=== PATIENT | male | born 1990 | race Caucasian/White ===

== ENCOUNTER 2024-05-18 04:41 | Emergency (ER) | payer OTHER, SELFPAY ==
[2024-05-18] VITALS (7 sets, daily range): BP systolic 116–138; BP diastolic 61–89; PULSE 61–92; RESP 15–24; TEMP 36.6–36.7; O2SAT 96–98; BMI 28.4
--- NOTE | ~2024-05-18 | US_ITS ---
EXAMINATION: US SCROTUM CLINICAL INFORMATION: Testicular pain swelling. COMPARISON: None available. TECHNIQUE: A sonogram of the scrotum was performed assessing navarro-scale appearance and color Doppler flow. Spectral Doppler analysis of the arterial and venous flow were performed in the testes bilaterally. The right testicle is 5.2 x 2.4 x 3.2 cm. Volume 21 mL Left testicle is 4.9 x 3.1 x 3 cm. Volume 23 mL. Importantly testicles are within normal limits. Echogenicity is normal bilaterally. There is arterial and venous flow detected in the testicles bilaterally. Note is made of a complex hydrocele on the left. Left epididymis is prominent with increased vascularity Note is made of probable appendix testes on the left. Probable cystic spermatocele in the body of the left testicle. Given the history this could represent a small hematoma US/US scrotum doppler IMPRESSION: Testicles are as described normal in appearance and demonstrating arterial and venous flow. There is a complex hydrocele associated with the left sac and the epididymis is prominent on the left with a small cystic area. This could be epididymitis. Given history of trauma this could be epididymal injury with surrounding aging hematoma. Underlying infection of course needs to be considered and cannot be excluded. Correlation recommended clinically
--- NOTE | ~2024-05-18 | US_ITS ---
EXAMINATION: US SCROTUM CLINICAL INFORMATION: Testicular pain swelling. COMPARISON: None available. TECHNIQUE: A sonogram of the scrotum was performed assessing navarro-scale appearance and color Doppler flow. Spectral Doppler analysis of the arterial and venous flow were performed in the testes bilaterally. The right testicle is 5.2 x 2.4 x 3.2 cm. Volume 21 mL Left testicle is 4.9 x 3.1 x 3 cm. Volume 23 mL. Importantly testicles are within normal limits. Echogenicity is normal bilaterally. There is arterial and venous flow detected in the testicles bilaterally. Note is made of a complex hydrocele on the left. Left epididymis is prominent with increased vascularity Note is made of probable appendix testes on the left. Probable cystic spermatocele in the body of the left testicle. Given the history this could represent a small hematoma US/US scrotum IMPRESSION: Testicles are as described normal in appearance and demonstrating arterial and venous flow. There is a complex hydrocele associated with the left sac and the epididymis is prominent on the left with a small cystic area. This could be epididymitis. Given history of trauma this could be epididymal injury with surrounding aging hematoma. Underlying infection of course needs to be considered and cannot be excluded. Correlation recommended clinically
--- NOTE | 2024-05-18 05:11 | ED_ITS ---
HPI - Male Genitourinary General Chief complaint: Urogenital-Male Stated complaint: uro gen male after inj Time Seen by Provider: 05/18/24 05:18 Source: patient and family Mode of arrival: ambulatory Limitations: no limitations History of Present Illness ED Provider: DR. Steen HPI Narrative: 33-year-old male presented for evaluation of left testicular pain. Pain started 3 days ago as acute left testicular pain while he was getting out of the car holding heavy bag, do not remember any direct trauma to his testicle. Patient stated that the pain started mild and progressively started to get severe was seen at an urgent care and scheduled to have ultrasound sometimes today, patient notice blood in his ejaculate initially, woke up this morning in severe pain and worsening of the scrotal swelling. Sexually active with 1 partner no penile discharge, no risk for STD. Related Data Allergies Allergy/AdvReac Type Severity Reaction Status Date / Time amoxicillin Allergy Hives Verified 05/18/24 04:55 Review of Systems 2 Review of Systems: All other systems are reviewed and are negative Constitutional: Reports as per HPI and Reports no additional constitutional complaints Eyes: Reports as per HPI and Reports no additional eye complaints Reports system reviewed and no additional complaints, except as documented Cardiovascular: Reports as per HPI and Reports no additional cardiovascular complaints Respiratory: Reports as per HPI and Reports no additional respiratory complaints Gastrointestinal: Reports as per HPI and Reports no additional gastrointestinal complaints Genitourinary: Reports no additional female genitourinary complaints Musculoskeletal: Reports no additional musculoskeletal complaints Skin/Breast: Reports system reviewed and no additional complaints, except as docu Psychiatric: Reports no additional psychiatric complaints Endocrine: Reports no additional endocrine complaints Hematologic/Lymphatic: Reports no additional hematologic/lymphatic complaints Allergic/Immunologic: Reports no additional allergic/immunologic complaints Reports system reviewed and no additional complaints, except as documented and Reports Abnormal speech present [facility] Social History Social History Smoked in Last 30 Days: No Use of substances other than those prescribed or required for medical reasons: Yes Substance Use Type: Marijuana Substance Use Frequency: Daily Advance Directives: No Advance Directives Information Provided: No Do you have a plan to hurt others: No Plan Physical Exam 2 Vital Signs: Vital Signs: Last Vital Signs Temp 98.1 F 05/18/24 04:52 Pulse 92 05/18/24 04:52 Resp 16 05/18/24 05:50 BP 138/89 05/18/24 04:52 Pulse Ox 98 05/18/24 04:52 O2 Del Method Room Air 05/18/24 04:52 BMI result Body Mass Index 28.4 Vital signs have been reviewed and appear to be correct. Blood pressure elevated. Heart rate normal. Respiratory rate normal. Temperature normal. Oxygen saturation normal. Appearance: Alert. Oriented X3. No acute distress. Head: Normal external exam. Normocephalic. Atraumatic. No Meraz signs noted. No raccoon eyes noted Eyes: PERRLA. EOMI. Conjunctiva and sclera normal. Eyelids normal. ENT: TM's Normal. Pharynx normal. Uvula midline. Moist mucous membranes. No trismus noted. No drooling noted. No muffled voice noted. Neck: Normal inspection. Neck supple. FROM. No adenopathy. Thyroid Normal. No meningeal signs. No neck mass noted. CVS: Normal heart rate and rhythm. Heart sound normal. No murmurs noted. Pulses normal throughout. Respiratory: No respiratory distress. Painless inspiration. Breath sounds normal. No wheezes/rales/rhonchi noted. Chest nontender. No accessory muscle usage noted or decreased air movement noted. Abdomen: Soft and nontender. Bowel sounds normal in all 4 quadrants. No distention noted. No organomegaly noted. No visible injury noted. exam: Diffuse scrotal swelling and tenderness left more than right, cremasteric reflex is intact bilaterally. Back: No CVA tenderness. Full range of motion noted. Skin: Skin warm and dry. Normal skin color. Normal skin turgor. No rashes/lesions/lacerations noted. Extremities: No lower extremity edema. Extremities exhibit normal range of motion. Extremities nontender. Neuro: Oriented X 3. Cranial nerve exam: II-XII are grossly intact No motor deficit. No sensory deficit. Reflexes normal. Course Reevaluation(s) Reevaluation #1: 33-year-old male came in with left testicular pain for 3 days with questionable minor trauma to the testicle, sexually active with 1 partner patient declined risk for STDs, urine is showing WBCs and small leuko esterase, testicular ultrasound, labs are pending. Dose of ceftriaxone in the ED. Signed out to Dr. Sutton to check ultrasound/labs. Time: 06:51 Medications Administered Discontinued Medications Generic Name Dose Route Start Last Admin Trade Name Boris PRN Reason Stop Dose Admin Hydromorphone HCl 1 mg 05/18/24 05:10 05/18/24 05:50 Hydromorphone Hcl 1 Mg/Ml Syringe IM 05/18/24 05:11 1 mg ONCE ONE Administration Protocol Ceftriaxone Sodium 1 gm/ 50 mls @ 100 mls/hr 05/18/24 06:38 05/18/24 07:18 Sodium Chloride IV 05/18/24 07:07 100 mls/hr ONCE ONE Administration Ketorolac Tromethamine 30 mg 05/18/24 05:10 05/18/24 05:46 Ketorolac Tromethamine 30 Mg/Ml Vial IM 05/18/24 05:11 30 mg ONCE ONE Administration Medical Decision Making Differential Diagnosis Differential Diagnoses: The differential diagnosis associated with the presentation includes (STD, epididymitis, testicular torsion, UTI, testicular trauma and hematoma.) Admission/Observation Consideration of admission/observation: Escalation of care including admission/observation considered Lab Data MDM Lab Attestation statement: I reviewed the patient's lab results. 05/18/24 06:59 05/18/24 06:59 Labs: Lab Results 05/18/24 05/18/24 Range/Units 05:52 06:59 WBC 22.0 H (4.8-10.8) X10*3/uL RBC 4.72 (4.60-5.80) X10*6/uL Hgb 14.9 (14.0-18.0) g/dl Hct 41.0 L (42.0-52.0) % MCV 86.9 (80.0-98.0) fL MCH 31.6 (27.0-33.0) pg MCHC 36.3 H (31.0-36.0) g/dl RDW 11.6 (11.0-16.0) % Plt Count 349 (160-400) X10*3/uL MPV 9.3 L (9.4-12.4) fL Sodium 140 (135-145) mmol/L Potassium 3.9 (3.3-5.1) mmol/L Chloride 106 (96-108) mmol/L Carbon Dioxide 25 (22-29) mmol/L Anion Gap 13 (12-20) BUN 10 (9-16) mg/dL Creatinine 0.88 (0.5-1.4) mg/dL Estim Creat Clear Calc 145.4 Estimated GFR > 60 Random Glucose 116 H (60-115) mg/dL Lactic Acid 1.3 (0.5-2.0) mmol/L Calcium 9.4 (8.4-10.2) mg/dL Urine Color Yellow Urine Appearance Clear Urine pH 6.5 (5.0-9.0) Ur Specific [place] 1.015 (1.005-1.025) Urine Protein Negative (Neg-Trace) mg/dL Urine Glucose (UA) Negative (Negative) mg/dL Urine Ketones Negative (Negative) mg/dL Urine Blood Negative (Negative) Urine Nitrite Negative (Negative) Ur Leukocyte Esterase Small (1+) H (Negative) Urine RBC 0-2 (0-2) /HPF Urine WBC 11-20 H (0-5) /HPF Ur Squamous Epith Cells 0-2 (0-2) /HPF Urine Bacteria None Seen (None Seen) Hyaline Casts 0-2 (0-2) /LPF Discharge Plan Discharge Clinical Impression: Epididymitis Patient Disposition: Still a Patient Referrals: Chase Martínez MD [Physician] - Print Language: Cymraes
[2024-05-18] MEDS: Ketorolac Tromethamine 30 MG/ML VIAL IM (05:46)
[2024-05-18] MEDS: HYDROmorphone HCl 1 MG/ML SYRINGE IM (05:50)
[2024-05-18 06:00] LABS: Appearance Urine Clear; Color Urine Yellow; Glucose Urine UA Negative (Negative); Leukocyte Esterase Urine Small (1+) (Negative); Nitrite Urine Negative (Negative); PH 6.5 (5.0-9.0); Specific Gravity - Urine 1.015 (1.005-1.025); UMIC TRIGGER UACC YES; Urine Blood Negative (Negative); Urine Ketones Negative (Negative); Urine Protein Negative (Neg-Trace)
[2024-05-18 06:03] LABS: Bacteria Urine None Seen (None Seen); Hyaline Casts Urine 0-2 /LPF (0-2); RBC Urine 0-2 /HPF (0-2); Squamous Epithelial Cell Urine 0-2 /HPF (0-2); UACC Culture Trigger YES
[2024-05-18 07:08] LABS: Basophils Absolute Auto 0.1 X10*3/uL (0.0-0.2); Basophils Percent Auto 0.4 % (0-2); Eosinophils Absolute Auto 0.5 X10*3/uL (0.0-0.4); Eosinophils Percent Auto 2.5 % (0-4); Hemoglobin 14.9 g/dl (14.0-18.0); Imm Gran Abs Auto 0.11 X10*3/uL (0.00-0.03); Imm Gran Pct Auto 0.5 % (0.0-0.4); Lymphocytes Absolute Auto 2.2 X10*3/uL (1.2-4.9); MANUAL DIFF FLAG SCAN; Mean Corpuscular HGB Conc 36.3 g/dl (31.0-36.0); Mean Corpuscular Hemoglobin 31.6 pg (27.0-33.0); Mean Corpuscular Volume 86.9 fL (80.0-98.0); Mean Platelet Volume 9.3 fL (9.4-12.4); Monocytes Absolute Auto 1.7 X10*3/uL (0.1-1.2); Monocytes Percent Auto 7.8 % (2-11); Neutrophils Absolute Auto 17.4 x10*3/uL (2.0-8.3); Neutrophils Percent Auto 78.8 % (45-73); Platelet Count 349 X10*3/uL (160-400); Red Blood Count 4.72 X10*6/uL (4.60-5.80); Red Cell Distribution Width 11.6 % (11.0-16.0); SCAN SMEAR FLAG 1
[2024-05-18 07:17] LABS: Lactic Acid 1.3 mmol/L (0.5-2.0)
[2024-05-18] MEDS: cefTRIAXone sodium 1 GM in 0.9 % Sodium Chloride 50 ML IV (07:18)
[2024-05-18 07:20] LABS: Anion Gap 13 (12-20); Blood Urea Nitrogen 10 mg/dL (9-16); Calcium 9.4 mg/dL (8.4-10.2); Carbon Dioxide 25 mmol/L (22-29); Chloride 106 mmol/L (96-108); Creatinine Clr Calc Pharmacy 145.4; Estimated Glomerular Filt Rate > 60; Glucose Random 116 mg/dL (60-115); Potassium 3.9 mmol/L (3.3-5.1); Sodium 140 mmol/L (135-145)
[2024-05-18 07:44] LABS: Erythrocyte Sedimentation Rate 13 MM/HR (0-15)
[2024-05-18 07:53] LABS: SLIDE REVIEW VERIFIED
[2024-05-18] MEDS: Acetaminophen 325 MG TABLET 975 MG PO (09:31)
[2024-05-18] MEDS: Doxycycline Monohydrate 100 MG CAPSULE PO (09:32)
[2024-05-18] MEDS: oxyCODONE HCl Immed Release 5 MG TABLET 10 MG PO (10:40)
[2024-05-18 11:40] LABS: CT PCR NOT DETECTED (Not Detect.); NG PCR NOT DETECTED (Not Detect.)
== END 2024-05-18 11:26 | disposition home or self-care (01) ==
PROVIDERS: Emergency Provider Emergency Medicine
DX: N45.1 Epididymitis (principal); N50.812 Left testicular pain; Z72.89 Other problems related to lifestyle
CPT/HCPCS: 0353U; 36415; 76870; 80048; 81001; 81003; 83605; 85025; 85652; 87040; 87086; 93975; 96365; 96372; 99284; 99285; J0696; J1170; J1885